=== PATIENT | male | born 1995 | race Caucasian/White ===

== ENCOUNTER 2018-02-27 04:40 | Emergency (ER) | payer OTHER ==
[~2018-02-27] VITALS: Ht 190.5 cm; Wt 79.5 kg
[2018-02-27 05:05] VITALS: BP 134/71
[2018-02-27] MEDS: HYDROCODONE/ACETAMINOPHEN 5-325 MG TABLET PO ONE (05:15)
== END 2018-02-27 07:01 | disposition home or self-care (01) ==
LOC: EMS 04:41
DX: K04.7 Periapical abscess without sinus (principal); K02.9 Dental caries, unspecified